=== PATIENT | male | born 1970 | race Caucasian/White ===

== ENCOUNTER 2023-10-29 16:55 | Inpatient (IN) | payer OTHER ==
[~2023-10-29] VITALS: Ht 190.5 cm; Wt 118.0 kg
[2023-10-29] MEDS ORDERED: DEXTROSE 50%-WATER 25 GM/50 ML SYRINGE IVP PRN (17:45)
[2023-10-29 17:57] VITALS: BP 129/67; PULSE 85; RESP 18; TEMP 98.7
[2023-10-29 18:41] LABS: GLUCOMETER DEV NAME(LOC) 6N.2B; GLUCOSE,POINT OF CARE 106 MG/DL (70-110)
[2023-10-29 19:41] VITALS: BP 133/82; PULSE 87; RESP 20; TEMP 101.3
[2023-10-29] MEDS ORDERED: SODIUM CHLORIDE 0.9% 500 ML IV ONE (19:59)
[2023-10-29 20:15] VITALS: TEMP 98.7
[2023-10-29] MEDS ORDERED: MAGNESIUM HYDROXIDE SUSPENSION 30 ML UDCUP PO PRN (20:15)
[2023-10-29] MEDS ORDERED: ONDANSETRON HCL 4 MG/2 ML VIAL IVP PRN (20:15)
[2023-10-29] MEDS ORDERED: ACETAMINOPHEN 325 MG TABLET PO PRN (20:15)
[2023-10-29] MEDS ORDERED: BISACODYL 10 MG RECTAL RECTAL SUPPOSITORY PR PRN (20:15)
[2023-10-29] MEDS ORDERED: SODIUM CHLORIDE 0.9% 3,300 ML IV ONE (20:15)
[2023-10-29] MEDS ORDERED: MORPHINE SULFATE 2 MG/ML SYRINGE IVP PRN (20:15)
[2023-10-29] MEDS: VANCOMYCIN HCL 1.5 GM in DEXTROSE 5%-WATER 250 ML IV SCH (20:42)
[2023-10-29] MEDS: EMPAGLIFLOZIN 10 MG TABLET PO SCH (20:42)
[2023-10-29] MEDS: ACETAMINOPHEN 325 MG TABLET PO PRN (20:51)
[2023-10-29] MEDS: INSULIN GLARGINE,HUM.REC.ANLOG 100 UNITS/ML SQ SCH (20:57)
[2023-10-29] MEDS: DOCUSATE SODIUM 100 MG CAPSULE PO SCH (21:00)
[2023-10-29] MEDS: PIPERACILLIN/TAZO 3.375 GM/D5W 50 ML IV SCH (22:47)
[2023-10-29] MEDS: HEPARIN SODIUM,PORCINE 5,000 UNITS/ML VIAL SQ SCH (23:08)
[2023-10-30 04:16] VITALS: BP 117/65; PULSE 91; RESP 20; TEMP 98.4
[2023-10-30] MEDS: PIPERACILLIN/TAZO 3.375 GM/D5W 50 ML IV SCH ×4 (04:24→22:03)
[2023-10-30 06:31] LABS: GLUCOMETER DEV NAME(LOC) 6S.2; GLUCOSE,POINT OF CARE 131 MG/DL (70-110)
[2023-10-30 06:31] LABS: GLUCOMETER DEV NAME(LOC) 6S.2; GLUCOSE,POINT OF CARE 76 MG/DL (70-110)
[2023-10-30 08:01] VITALS: BP 122/68; PULSE 88; RESP 20; TEMP 98.6
[2023-10-30] MEDS: EMPAGLIFLOZIN 10 MG TABLET PO SCH (08:25)
[2023-10-30] MEDS: HEPARIN SODIUM,PORCINE 5,000 UNITS/ML VIAL SQ SCH ×2 (08:25→16:20)
[2023-10-30] MEDS: VANCOMYCIN HCL 1.5 GM in DEXTROSE 5%-WATER 250 ML IV SCH (08:25)
[2023-10-30] MEDS: DOCUSATE SODIUM 100 MG CAPSULE PO SCH ×3 (08:25→21:00)
[2023-10-30] MEDS: PANTOPRAZOLE SODIUM 40 MG DR TABLET PO SCH (08:25)
[2023-10-30 08:31] LABS: BASOPHILS % (AUTO) 0.2 % (0.0-2.0); EOSINOPHILS % (AUTO) 0.3 % (1.0-6.0); HEMATOCRIT 38.4 % (41-53); HEMOGLOBIN 13.6 g/dL (13.5-17.5); LYMPHOCYTES # (AUTO) 1.3 K/uL (1.0-4.8); LYMPHOCYTES % (AUTO) 11.3 % (22.0-44.0); MEAN CORPUSCULAR HEMOGLOBIN 30.2 pg (26.0-34.0); MEAN CORPUSCULAR HGB CONC 35.3 G/dL (31.0-37.0); MEAN CORPUSCULAR VOLUME 85 fL (80-100); MONOCYTES % (AUTO) 8.8 % (2.0-9.0); NEUTROPHILS # (AUTO) 8.9 K/uL (1.8-7.7); NEUTROPHILS % (AUTO) 79.4 % (40.0-70.0); PLATELET COUNT (AUTO) 353 K/uL (150-450); WHITE BLOOD COUNT (AUTO) 11.2 K/uL (4.5-11.0)
[2023-10-30 08:44] LABS: ANION GAP 13 mmol/L (8-16); CALCIUM, TOTAL 9.6 mg/dL (8.8-10.5); CARBON DIOXIDE 26 mmol/L (22-29); CHLORIDE 101 mmol/L (98-107); CREATININE 0.63 mg/dL (0.60-1.30); GLOMERULAR FILTR. RATE CALC > 60 mL/min (>60); GLUCOSE,RANDOM 70 mg/dL (70-110); POTASSIUM 4.5 mmol/L (3.5-5.1); SODIUM SERUM 140 mmol/L (136-145); UREA NITROGEN, BLOOD 7 mg/dL (7-18)
[2023-10-30] MEDS ORDERED: INSULIN LISPRO 100 UNITS/ML SQ PRN (11:30)
[2023-10-30] MEDS ORDERED: DEXTROSE 50%-WATER 25 GM/50 ML SYRINGE IVP PRN (11:30)
[2023-10-30 14:36] LABS: GLUCOMETER DEV NAME(LOC) 6S.2; GLUCOSE,POINT OF CARE 114 MG/DL (70-110)
[2023-10-30] MEDS: VANCOMYCIN 1GM/WATER(PEG/NADA) 200 ML IV SCH (17:31)
[2023-10-30 20:01] VITALS: BP 116/58; PULSE 88; RESP 18; TEMP 100.2
[2023-10-30] MEDS: INSULIN LISPRO 100 UNITS/ML SQ PRN (20:19)
[2023-10-30] MEDS: INSULIN GLARGINE,HUM.REC.ANLOG 100 UNITS/ML SQ SCH (20:21)
[2023-10-30] MEDS: ACETAMINOPHEN 325 MG TABLET PO PRN (20:22)
[2023-10-30] MEDS: HYDROCODONE/ACETAMINOPHEN 5-325 MG TABLET PO PRN (20:22)
[2023-10-31] MEDS: HEPARIN SODIUM,PORCINE 5,000 UNITS/ML VIAL SQ SCH ×4 (00:28→23:46)
[2023-10-31] MEDS: VANCOMYCIN 1GM/WATER(PEG/NADA) 200 ML IV SCH ×4 (00:28→23:45)
[2023-10-31] MEDS: PIPERACILLIN/TAZO 3.375 GM/D5W 50 ML IV SCH ×4 (03:45→21:53)
[2023-10-31 03:59] VITALS: BP 100/65; PULSE 73; RESP 18; TEMP 98
[2023-10-31 07:18] LABS: BASOPHILS % (AUTO) 0.3 % (0.0-2.0); EOSINOPHILS % (AUTO) 0.6 % (1.0-6.0); HEMATOCRIT 37.6 % (41-53); HEMOGLOBIN 13.6 g/dL (13.5-17.5); LYMPHOCYTES # (AUTO) 1.9 K/uL (1.0-4.8); LYMPHOCYTES % (AUTO) 19.3 % (22.0-44.0); MEAN CORPUSCULAR HEMOGLOBIN 30.8 pg (26.0-34.0); MEAN CORPUSCULAR HGB CONC 36.1 G/dL (31.0-37.0); MEAN CORPUSCULAR VOLUME 85 fL (80-100); MONOCYTES % (AUTO) 9.8 % (2.0-9.0); NEUTROPHILS # (AUTO) 6.9 K/uL (1.8-7.7); PLATELET COUNT (AUTO) 362 K/uL (150-450); RED CELL DISTRIBUTION WIDTH 12.7 % (11.5-14.5); WHITE BLOOD COUNT (AUTO) 9.8 K/uL (4.5-11.0)
[2023-10-31 07:40] LABS: ANION GAP 8 mmol/L (8-16); CALCIUM, TOTAL 9.2 mg/dL (8.8-10.5); CARBON DIOXIDE 29 mmol/L (22-29); CHLORIDE 103 mmol/L (98-107); CREATININE 0.69 mg/dL (0.60-1.30); GLOMERULAR FILTR. RATE CALC > 60 mL/min (>60); GLUCOSE,RANDOM 113 mg/dL (70-110); POTASSIUM 4.3 mmol/L (3.5-5.1); SODIUM SERUM 140 mmol/L (136-145); UREA NITROGEN, BLOOD 10 mg/dL (7-18); VANCOMYCIN,RANDOM 16.2 mcg/mL (25.0-50.0)
[2023-10-31 07:40] LABS: GLUCOMETER DEV NAME(LOC) 6N.2B; GLUCOSE,POINT OF CARE 123 MG/DL (70-110)
[2023-10-31 07:41] LABS: GLUCOMETER DEV NAME(LOC) 6S.2; GLUCOSE,POINT OF CARE 106 MG/DL (70-110)
[2023-10-31 07:41] LABS: GLUCOMETER DEV NAME(LOC) 6S.2; GLUCOSE,POINT OF CARE 204 MG/DL (70-110)
[2023-10-31] MEDS: DOCUSATE SODIUM 100 MG CAPSULE PO SCH ×3 (07:52→20:41)
[2023-10-31] MEDS: PANTOPRAZOLE SODIUM 40 MG DR TABLET PO SCH (07:53)
[2023-10-31] MEDS: EMPAGLIFLOZIN 10 MG TABLET PO SCH (07:53)
[2023-10-31 08:42] VITALS: BP 118/76; PULSE 83; RESP 19; TEMP 98.1
[2023-10-31] MEDS: INSULIN LISPRO 100 UNITS/ML SQ PRN ×2 (11:33→20:40)
[2023-10-31 12:01] LABS: GLUCOMETER DEV NAME(LOC) 6N.2B; GLUCOSE,POINT OF CARE 170 MG/DL (70-110)
[2023-10-31 16:40] VITALS: BP 112/66; PULSE 78; RESP 19; TEMP 98.2
[2023-10-31 20:11] VITALS: BP 109/64; PULSE 82; RESP 18; TEMP 97.9
[2023-10-31] MEDS: INSULIN GLARGINE,HUM.REC.ANLOG 100 UNITS/ML SQ SCH (20:40)
[2023-10-31] MEDS ORDERED: SODIUM CHLORIDE 0.9% 500 ML IV ONE (23:48)
[2023-11-01] MEDS: HYDROCODONE/ACETAMINOPHEN 5-325 MG TABLET PO PRN (01:01)
[2023-11-01] MEDS: PIPERACILLIN/TAZO 3.375 GM/D5W 50 ML IV SCH ×2 (04:00→09:53)
[2023-11-01 04:24] VITALS: BP 114/71; PULSE 74; RESP 18; TEMP 97.8
[2023-11-01] MEDS: INSULIN LISPRO 100 UNITS/ML SQ PRN ×2 (05:27→12:21)
[2023-11-01 06:26] LABS: GLUCOMETER DEV NAME(LOC) 6N.2B; GLUCOSE,POINT OF CARE 193 MG/DL (70-110)
[2023-11-01 06:59] LABS: BASOPHILS % (AUTO) 0.2 % (0.0-2.0); HEMATOCRIT 35.9 % (41-53); HEMOGLOBIN 12.9 g/dL (13.5-17.5); LYMPHOCYTES # (AUTO) 1.7 K/uL (1.0-4.8); LYMPHOCYTES % (AUTO) 18.9 % (22.0-44.0); MEAN CORPUSCULAR HEMOGLOBIN 30.7 pg (26.0-34.0); MEAN CORPUSCULAR VOLUME 85 fL (80-100); MONOCYTES # (AUTO) 0.8 K/uL (0.1-1.0); MONOCYTES % (AUTO) 8.8 % (2.0-9.0); NEUTROPHILS # (AUTO) 6.5 K/uL (1.8-7.7); NEUTROPHILS % (AUTO) 71.1 % (40.0-70.0); PLATELET COUNT (AUTO) 344 K/uL (150-450); RED BLOOD CELL COUNT(AUTO) 4.22 MIL/uL (4.50-5.90); RED CELL DISTRIBUTION WIDTH 12.7 % (11.5-14.5); WHITE BLOOD COUNT (AUTO) 9.1 K/uL (4.5-11.0)
[2023-11-01 07:16] LABS: GLUCOMETER DEV NAME(LOC) 6S.2; GLUCOSE,POINT OF CARE 96 MG/DL (70-110)
[2023-11-01 07:16] LABS: GLUCOMETER DEV NAME(LOC) 4E.2; GLUCOSE,POINT OF CARE 159 MG/DL (70-110)
[2023-11-01 07:52] LABS: ANION GAP 9 mmol/L (8-16); CALCIUM, TOTAL 8.3 mg/dL (8.8-10.5); CARBON DIOXIDE 25 mmol/L (22-29); CHLORIDE 104 mmol/L (98-107); CREATININE 0.73 mg/dL (0.60-1.30); GLOMERULAR FILTR. RATE CALC > 60 mL/min (>60); GLUCOSE,RANDOM 128 mg/dL (70-110); POTASSIUM 3.9 mmol/L (3.5-5.1); SODIUM SERUM 138 mmol/L (136-145); UREA NITROGEN, BLOOD 10 mg/dL (7-18)
[2023-11-01 08:13] VITALS: BP 122/70; PULSE 73; RESP 18; TEMP 98.4
[2023-11-01] MEDS: EMPAGLIFLOZIN 10 MG TABLET PO SCH (08:39)
[2023-11-01] MEDS: PANTOPRAZOLE SODIUM 40 MG DR TABLET PO SCH (08:39)
[2023-11-01] MEDS: VANCOMYCIN 1GM/WATER(PEG/NADA) 200 ML IV SCH (08:39)
[2023-11-01] MEDS: DOCUSATE SODIUM 100 MG CAPSULE PO SCH ×2 (08:39→20:16)
[2023-11-01] MEDS: HEPARIN SODIUM,PORCINE 5,000 UNITS/ML VIAL SQ SCH ×3 (08:39→23:05)
[2023-11-01 12:51] LABS: GLUCOMETER DEV NAME(LOC) 6S.2; GLUCOSE,POINT OF CARE 213 MG/DL (70-110)
[2023-11-01 17:12] VITALS: BP 110/57; PULSE 86; RESP 16; TEMP 98.1
[2023-11-01] MEDS: CLINDAMYCIN 900 MG/D5% WATER 50 ML IV SCH (17:29)
[2023-11-01 17:56] LABS: GLUCOMETER DEV NAME(LOC) 6S.2; GLUCOSE,POINT OF CARE 135 MG/DL (70-110)
[2023-11-01] MEDS: CefTRIAXone SODIUM 2 GM in DEXTROSE 5%-WATER 50 ML IV SCH (18:15)
[2023-11-01] MEDS: INSULIN GLARGINE,HUM.REC.ANLOG 100 UNITS/ML SQ SCH (20:16)
[2023-11-01 21:51] LABS: GLUCOMETER DEV NAME(LOC) 6S.2; GLUCOSE,POINT OF CARE 122 MG/DL (70-110)
[2023-11-02] MEDS: CLINDAMYCIN 900 MG/D5% WATER 50 ML IV SCH ×3 (00:08→16:54)
[2023-11-02 04:50] VITALS: BP 105/61; PULSE 75; RESP 20; TEMP 98
[2023-11-02] MEDS: INSULIN LISPRO 100 UNITS/ML SQ PRN ×2 (06:36→20:45)
[2023-11-02] MEDS ORDERED: RINGERS SOLUTION,LACTATED 1,000 ML IV ONE (06:37)
[2023-11-02] MEDS ORDERED: ETHYL ALCOHOL 62% ANTISEPTIC NASAL SANITIZER 0.6 ML AMPUL NASAL ONE (06:45)
[2023-11-02] MEDS ORDERED: CHLORHEXIDINE GLUCONATE 2% TOWELETTE [2'S/6'S] TP ONE (06:45)
[2023-11-02] MEDS ORDERED: LIDOCAINE/PF 1% 30 ML VIAL ONE (06:55)
[2023-11-02] MEDS ORDERED: BUPIVACAINE HCL/PF 0.5% 30 ML VIAL ONE (06:55)
[2023-11-02] MEDS ORDERED: SODIUM CL IRRIG SOLN BAG 3,000 ML IRRIG ONE (06:56)
[2023-11-02 07:21] LABS: GLUCOMETER DEV NAME(LOC) 6S.2; GLUCOSE,POINT OF CARE 163 MG/DL (70-110)
[2023-11-02] MEDS ORDERED: VANCOMYCIN HCL 1 GM/VIAL ONE (08:12)
[2023-11-02] MEDS ORDERED: GELATIN SPONGE,ABSORBABLE 100 MM TP ONE (08:12)
[2023-11-02] MEDS: PANTOPRAZOLE SODIUM 40 MG DR TABLET PO SCH (09:08)
[2023-11-02] MEDS: HEPARIN SODIUM,PORCINE 5,000 UNITS/ML VIAL SQ SCH ×2 (09:08→16:11)
[2023-11-02] MEDS: EMPAGLIFLOZIN 10 MG TABLET PO SCH (09:08)
[2023-11-02] MEDS: DOCUSATE SODIUM 100 MG CAPSULE PO SCH ×2 (09:08→20:50)
[2023-11-02 11:46] LABS: GLUCOMETER DEV NAME(LOC) 6N.2B; GLUCOSE,POINT OF CARE 113 MG/DL (70-110)
[2023-11-02] MEDS: HYDROCODONE/ACETAMINOPHEN 5-325 MG TABLET PO PRN (13:14)
[2023-11-02 15:00] VITALS: BP 111/71; PULSE 78; RESP 18; TEMP 98.3
[2023-11-02] MEDS ORDERED: SODIUM CHLORIDE 0.9% 500 ML IV ONE (17:02)
[2023-11-02 17:21] LABS: GLUCOMETER DEV NAME(LOC) 6N.2B; GLUCOSE,POINT OF CARE 105 MG/DL (70-110)
[2023-11-02] MEDS: CefTRIAXone SODIUM 2 GM in DEXTROSE 5%-WATER 50 ML IV SCH (17:53)
[2023-11-02 20:00] VITALS: BP 114/64; PULSE 76; RESP 18; TEMP 98.9
[2023-11-02] MEDS: INSULIN GLARGINE,HUM.REC.ANLOG 100 UNITS/ML SQ SCH (20:45)
[2023-11-02 22:36] LABS: GLUCOMETER DEV NAME(LOC) 6S.2; GLUCOSE,POINT OF CARE 163 MG/DL (70-110)
[2023-11-03] MEDS: HEPARIN SODIUM,PORCINE 5,000 UNITS/ML VIAL SQ SCH ×3 (00:15→17:05)
[2023-11-03] MEDS: CLINDAMYCIN 900 MG/D5% WATER 50 ML IV SCH ×3 (00:16→17:05)
[2023-11-03 04:26] VITALS: BP 107/67; PULSE 74; RESP 20; TEMP 97.9
[2023-11-03] MEDS ORDERED: MIDAZOLAM HCL 2 MG/2 ML VIAL IVP ONE (05:44)
[2023-11-03] MEDS ORDERED: PROPOFOL 1% 20 ML VIAL IVP ONE (05:44)
[2023-11-03] MEDS ORDERED: ONDANSETRON HCL 4 MG/2 ML VIAL IVP ONE (05:44)
[2023-11-03] MEDS ORDERED: FentaNYL CITRATE PF 100 MCG/2 ML VIAL IVP ONE (05:44)
[2023-11-03] MEDS: INSULIN LISPRO 100 UNITS/ML SQ PRN ×3 (06:04→21:15)
[2023-11-03 07:10] LABS: GLUCOMETER DEV NAME(LOC) 4E.2; GLUCOSE,POINT OF CARE 164 MG/DL (70-110)
[2023-11-03 07:24] LABS: BASOPHILS % (AUTO) 0.4 % (0.0-2.0); EOSINOPHILS % (AUTO) 1.1 % (1.0-6.0); HEMATOCRIT 38.3 % (41-53); HEMOGLOBIN 13.5 g/dL (13.5-17.5); LYMPHOCYTES # (AUTO) 2.1 K/uL (1.0-4.8); MEAN CORPUSCULAR HEMOGLOBIN 29.8 pg (26.0-34.0); MEAN CORPUSCULAR HGB CONC 35.1 G/dL (31.0-37.0); MEAN CORPUSCULAR VOLUME 85 fL (80-100); MONOCYTES # (AUTO) 0.6 K/uL (0.1-1.0); MONOCYTES % (AUTO) 6.6 % (2.0-9.0); NEUTROPHILS # (AUTO) 6.3 K/uL (1.8-7.7); PLATELET COUNT (AUTO) 405 K/uL (150-450); RED BLOOD CELL COUNT(AUTO) 4.51 MIL/uL (4.50-5.90); RED CELL DISTRIBUTION WIDTH 12.7 % (11.5-14.5); WHITE BLOOD COUNT (AUTO) 9.1 K/uL (4.5-11.0)
[2023-11-03 07:31] LABS: NEUTROPHILS % (AUTO) 68.9 % (40.0-70.0)
[2023-11-03 07:33] VITALS: BP 114/70; PULSE 91; RESP 20; TEMP 98.1
[2023-11-03 07:40] LABS: ANION GAP 9 mmol/L (8-16); CALCIUM, TOTAL 8.7 mg/dL (8.8-10.5); CARBON DIOXIDE 26 mmol/L (22-29); CHLORIDE 104 mmol/L (98-107); CREATININE 0.64 mg/dL (0.60-1.30); GLOMERULAR FILTR. RATE CALC > 60 mL/min (>60); GLUCOSE,RANDOM 156 mg/dL (70-110); POTASSIUM 4.3 mmol/L (3.5-5.1); SODIUM SERUM 139 mmol/L (136-145); UREA NITROGEN, BLOOD 11 mg/dL (7-18)
[2023-11-03] MEDS: MULTIVITAMINS WITH MINERALS, THERAPEUTIC TABLET PO SCH (08:40)
[2023-11-03] MEDS: ASCORBIC ACID 500 MG TABLET PO SCH (08:40)
[2023-11-03] MEDS: PANTOPRAZOLE SODIUM 40 MG DR TABLET PO SCH (08:40)
[2023-11-03] MEDS: DOCUSATE SODIUM 100 MG CAPSULE PO SCH ×2 (08:40→21:12)
[2023-11-03] MEDS: EMPAGLIFLOZIN 10 MG TABLET PO SCH (08:40)
[2023-11-03 12:51] LABS: GLUCOMETER DEV NAME(LOC) 6S.2; GLUCOSE,POINT OF CARE 184 MG/DL (70-110)
[2023-11-03 15:02] VITALS: BP 113/80; PULSE 76; RESP 16; TEMP 98.5
[2023-11-03 18:11] LABS: GLUCOMETER DEV NAME(LOC) 4E.2; GLUCOSE,POINT OF CARE 134 MG/DL (70-110)
[2023-11-03] MEDS: CefTRIAXone SODIUM 2 GM in DEXTROSE 5%-WATER 50 ML IV SCH (18:50)
[2023-11-03 20:00] VITALS: BP 116/75; PULSE 84; RESP 18; TEMP 98.4
[2023-11-03] MEDS: INSULIN GLARGINE,HUM.REC.ANLOG 100 UNITS/ML SQ SCH (21:13)
[2023-11-03] MEDS: HYDROCODONE/ACETAMINOPHEN 5-325 MG TABLET PO PRN (21:15)
[2023-11-03 22:21] LABS: GLUCOMETER DEV NAME(LOC) 4E.2; GLUCOSE,POINT OF CARE 221 MG/DL (70-110)
[2023-11-04] MEDS: HEPARIN SODIUM,PORCINE 5,000 UNITS/ML VIAL SQ SCH ×4 (00:47→23:48)
[2023-11-04] MEDS: CLINDAMYCIN 900 MG/D5% WATER 50 ML IV SCH ×2 (00:48→09:03)
[2023-11-04 04:03] VITALS: BP 119/64; PULSE 70; RESP 18; TEMP 98.1
[2023-11-04] MEDS: INSULIN LISPRO 100 UNITS/ML SQ PRN ×4 (06:13→21:14)
[2023-11-04 06:55] LABS: BASOPHILS % (AUTO) 0.2 % (0.0-2.0); EOSINOPHILS % (AUTO) 1.3 % (1.0-6.0); HEMATOCRIT 37.9 % (41-53); HEMOGLOBIN 13.7 g/dL (13.5-17.5); LYMPHOCYTES # (AUTO) 1.8 K/uL (1.0-4.8); LYMPHOCYTES % (AUTO) 25.2 % (22.0-44.0); MEAN CORPUSCULAR HEMOGLOBIN 30.6 pg (26.0-34.0); MEAN CORPUSCULAR HGB CONC 36.1 G/dL (31.0-37.0); MEAN CORPUSCULAR VOLUME 85 fL (80-100); MONOCYTES # (AUTO) 0.6 K/uL (0.1-1.0); NEUTROPHILS # (AUTO) 4.7 K/uL (1.8-7.7); NEUTROPHILS % (AUTO) 65.3 % (40.0-70.0); PLATELET COUNT (AUTO) 398 K/uL (150-450); RED BLOOD CELL COUNT(AUTO) 4.48 MIL/uL (4.50-5.90); RED CELL DISTRIBUTION WIDTH 12.9 % (11.5-14.5); WHITE BLOOD COUNT (AUTO) 7.1 K/uL (4.5-11.0)
[2023-11-04 07:06] LABS: GLUCOMETER DEV NAME(LOC) 6S.2; GLUCOSE,POINT OF CARE 220 MG/DL (70-110)
[2023-11-04 07:07] LABS: ANION GAP 8 mmol/L (8-16); CALCIUM, TOTAL 8.7 mg/dL (8.8-10.5); CARBON DIOXIDE 25 mmol/L (22-29); CHLORIDE 105 mmol/L (98-107); CREATININE 0.55 mg/dL (0.60-1.30); GLOMERULAR FILTR. RATE CALC > 60 mL/min (>60); GLUCOSE,RANDOM 220 mg/dL (70-110); POTASSIUM 4.1 mmol/L (3.5-5.1); SODIUM SERUM 138 mmol/L (136-145); UREA NITROGEN, BLOOD 11 mg/dL (7-18)
[2023-11-04 08:24] VITALS: BP 115/78; PULSE 91; RESP 18; TEMP 98.1
[2023-11-04] MEDS: DOCUSATE SODIUM 100 MG CAPSULE PO SCH ×2 (09:03→21:15)
[2023-11-04] MEDS: MULTIVITAMINS WITH MINERALS, THERAPEUTIC TABLET PO SCH (09:03)
[2023-11-04] MEDS: EMPAGLIFLOZIN 10 MG TABLET PO SCH (09:03)
[2023-11-04] MEDS: PANTOPRAZOLE SODIUM 40 MG DR TABLET PO SCH (09:03)
[2023-11-04] MEDS: ASCORBIC ACID 500 MG TABLET PO SCH (09:04)
[2023-11-04] MEDS: ACETAMINOPHEN 325 MG TABLET PO PRN (09:08)
[2023-11-04 17:06] VITALS: BP 103/65; PULSE 78; RESP 18; TEMP 97.9
[2023-11-04] MEDS: CefTRIAXone SODIUM 2 GM in DEXTROSE 5%-WATER 50 ML IV SCH (17:44)
[2023-11-04 18:06] LABS: GLUCOMETER DEV NAME(LOC) 4E.2; GLUCOSE,POINT OF CARE 177 MG/DL (70-110)
[2023-11-04 18:07] LABS: GLUCOMETER DEV NAME(LOC) 4E.2; GLUCOSE,POINT OF CARE 165 MG/DL (70-110)
[2023-11-04] MEDS: INSULIN GLARGINE,HUM.REC.ANLOG 100 UNITS/ML SQ SCH (21:13)
[2023-11-04] MEDS: HYDROCODONE/ACETAMINOPHEN 5-325 MG TABLET PO PRN (21:15)
[2023-11-04 21:40] VITALS: BP 109/68; PULSE 90; RESP 18; TEMP 98.1
[2023-11-04 23:05] LABS: GLUCOMETER DEV NAME(LOC) 6N.2B; GLUCOSE,POINT OF CARE 193 MG/DL (70-110)
[2023-11-05 05:45] VITALS: BP 107/72; PULSE 68; RESP 18; TEMP 98.5
[2023-11-05] MEDS: INSULIN LISPRO 100 UNITS/ML SQ PRN ×5 (06:24→20:20)
[2023-11-05 06:46] LABS: GLUCOMETER DEV NAME(LOC) 6N.2B; GLUCOSE,POINT OF CARE 211 MG/DL (70-110)
[2023-11-05 06:54] LABS: ANION GAP 8 mmol/L (8-16); CALCIUM, TOTAL 8.8 mg/dL (8.8-10.5); CARBON DIOXIDE 28 mmol/L (22-29); CHLORIDE 103 mmol/L (98-107); CREATININE 0.59 mg/dL (0.60-1.30); GLOMERULAR FILTR. RATE CALC > 60 mL/min (>60); GLUCOSE,RANDOM 208 mg/dL (70-110); POTASSIUM 4.4 mmol/L (3.5-5.1); SODIUM SERUM 138 mmol/L (136-145); UREA NITROGEN, BLOOD 14 mg/dL (7-18)
[2023-11-05 07:01] LABS: BASOPHILS % (AUTO) 0.2 % (0.0-2.0); EOSINOPHILS % (AUTO) 1.3 % (1.0-6.0); HEMOGLOBIN 14.4 g/dL (13.5-17.5); LYMPHOCYTES # (AUTO) 2.3 K/uL (1.0-4.8); LYMPHOCYTES % (AUTO) 29.7 % (22.0-44.0); MEAN CORPUSCULAR HEMOGLOBIN 30.6 pg (26.0-34.0); MEAN CORPUSCULAR HGB CONC 36.1 G/dL (31.0-37.0); MEAN CORPUSCULAR VOLUME 85 fL (80-100); MONOCYTES # (AUTO) 0.5 K/uL (0.1-1.0); MONOCYTES % (AUTO) 6.6 % (2.0-9.0); NEUTROPHILS # (AUTO) 4.8 K/uL (1.8-7.7); NEUTROPHILS % (AUTO) 62.2 % (40.0-70.0); PLATELET COUNT (AUTO) 432 K/uL (150-450); RED BLOOD CELL COUNT(AUTO) 4.73 MIL/uL (4.50-5.90); RED CELL DISTRIBUTION WIDTH 12.8 % (11.5-14.5); WHITE BLOOD COUNT (AUTO) 7.8 K/uL (4.5-11.0)
[2023-11-05] MEDS: PANTOPRAZOLE SODIUM 40 MG DR TABLET PO SCH (08:42)
[2023-11-05] MEDS: EMPAGLIFLOZIN 10 MG TABLET PO SCH (08:42)
[2023-11-05] MEDS: DOCUSATE SODIUM 100 MG CAPSULE PO SCH ×2 (08:42→20:12)
[2023-11-05] MEDS: ASCORBIC ACID 500 MG TABLET PO SCH (08:42)
[2023-11-05] MEDS: MULTIVITAMINS WITH MINERALS, THERAPEUTIC TABLET PO SCH (08:42)
[2023-11-05] MEDS: HEPARIN SODIUM,PORCINE 5,000 UNITS/ML VIAL SQ SCH ×3 (08:42→23:09)
[2023-11-05 09:05] VITALS: BP 110/59; PULSE 83; RESP 18; TEMP 98
[2023-11-05 14:16] LABS: GLUCOMETER DEV NAME(LOC) 6N.2B; GLUCOSE,POINT OF CARE 162 MG/DL (70-110)
[2023-11-05] MEDS: ACETAMINOPHEN 325 MG TABLET PO PRN (15:58)
[2023-11-05 17:01] LABS: C-REACTIVE PROTEIN QUANT 2.19 mg/dL (0.00-0.30)
[2023-11-05] MEDS: CefTRIAXone SODIUM 2 GM in DEXTROSE 5%-WATER 50 ML IV SCH (17:14)
[2023-11-05 17:20] VITALS: BP 119/71; PULSE 85; RESP 18; TEMP 97.9
[2023-11-05 18:16] LABS: GLUCOMETER DEV NAME(LOC) 6S.2; GLUCOSE,POINT OF CARE 147 MG/DL (70-110)
[2023-11-05] MEDS: INSULIN GLARGINE,HUM.REC.ANLOG 100 UNITS/ML SQ SCH (20:21)
[2023-11-05 20:28] VITALS: BP 136/79; PULSE 97; RESP 18; TEMP 98
[2023-11-06 04:30] VITALS: BP 111/75; PULSE 77; RESP 18; TEMP 98
[2023-11-06] MEDS: INSULIN LISPRO 100 UNITS/ML SQ PRN ×3 (05:39→21:23)
[2023-11-06 06:21] LABS: GLUCOMETER DEV NAME(LOC) 6S.2; GLUCOSE,POINT OF CARE 208 MG/DL (70-110)
[2023-11-06 07:41] LABS: GLUCOMETER DEV NAME(LOC) 6N.2B; GLUCOSE,POINT OF CARE 257 MG/DL (70-110)
[2023-11-06] MEDS: ASCORBIC ACID 500 MG TABLET PO SCH (08:47)
[2023-11-06] MEDS: HEPARIN SODIUM,PORCINE 5,000 UNITS/ML VIAL SQ SCH ×3 (08:47→23:30)
[2023-11-06] MEDS: DOCUSATE SODIUM 100 MG CAPSULE PO SCH ×2 (08:47→21:00)
[2023-11-06] MEDS: EMPAGLIFLOZIN 10 MG TABLET PO SCH (08:48)
[2023-11-06] MEDS: HYDROCODONE/ACETAMINOPHEN 5-325 MG TABLET PO PRN (08:48)
[2023-11-06] MEDS: PANTOPRAZOLE SODIUM 40 MG DR TABLET PO SCH (08:48)
[2023-11-06] MEDS: MULTIVITAMINS WITH MINERALS, THERAPEUTIC TABLET PO SCH (08:48)
[2023-11-06 10:29] VITALS: BP 112/75; PULSE 80; RESP 18; TEMP 97.5
[2023-11-06] MEDS: CefTRIAXone SODIUM 2 GM in DEXTROSE 5%-WATER 50 ML IV SCH (17:09)
[2023-11-06 17:23] VITALS: BP 103/70; PULSE 74; RESP 20; TEMP 98.2
[2023-11-06 18:56] LABS: GLUCOMETER DEV NAME(LOC) 6S.2; GLUCOSE,POINT OF CARE 121 MG/DL (70-110)
[2023-11-06 19:42] VITALS: BP 98/61; PULSE 89; RESP 20; TEMP 98.4
[2023-11-06] MEDS: INSULIN GLARGINE,HUM.REC.ANLOG 100 UNITS/ML SQ SCH (21:22)
[2023-11-07 04:09] VITALS: BP 107/66; PULSE 89; RESP 20; TEMP 97.7
[2023-11-07] MEDS: INSULIN LISPRO 100 UNITS/ML SQ PRN ×4 (06:35→20:53)
[2023-11-07] MEDS: PANTOPRAZOLE SODIUM 40 MG DR TABLET PO SCH (08:35)
[2023-11-07] MEDS: HEPARIN SODIUM,PORCINE 5,000 UNITS/ML VIAL SQ SCH ×2 (08:35→16:29)
[2023-11-07] MEDS: DOCUSATE SODIUM 100 MG CAPSULE PO SCH ×2 (08:35→20:23)
[2023-11-07] MEDS: EMPAGLIFLOZIN 10 MG TABLET PO SCH (08:35)
[2023-11-07] MEDS: MULTIVITAMINS WITH MINERALS, THERAPEUTIC TABLET PO SCH (08:35)
[2023-11-07] MEDS: ASCORBIC ACID 500 MG TABLET PO SCH (08:35)
[2023-11-07 09:31] VITALS: BP 122/77; PULSE 80; RESP 20; TEMP 97.9
[2023-11-07 11:16] LABS: GLUCOMETER DEV NAME(LOC) 6S.2; GLUCOSE,POINT OF CARE 248 MG/DL (70-110)
[2023-11-07 11:16] LABS: GLUCOMETER DEV NAME(LOC) 6S.2; GLUCOSE,POINT OF CARE 224 MG/DL (70-110)
[2023-11-07] MEDS: HYDROCODONE/ACETAMINOPHEN 5-325 MG TABLET PO PRN (11:16)
[2023-11-07 12:46] LABS: GLUCOMETER DEV NAME(LOC) 4E.2; GLUCOSE,POINT OF CARE 181 MG/DL (70-110)
[2023-11-07 15:45] VITALS: BP 117/82; PULSE 79; RESP 20; TEMP 98.2
[2023-11-07] MEDS: CefTRIAXone SODIUM 2 GM in DEXTROSE 5%-WATER 50 ML IV SCH (18:13)
[2023-11-07 19:45] VITALS: BP 124/70; PULSE 90; RESP 20; TEMP 98.1
[2023-11-07] MEDS: ZOLPIDEM TARTRATE 5 MG TABLET PO PRN ×2 (20:24→20:56)
[2023-11-07] MEDS: INSULIN GLARGINE,HUM.REC.ANLOG 100 UNITS/ML SQ SCH (20:55)
[2023-11-07 23:06] LABS: GLUCOMETER DEV NAME(LOC) 4E.2; GLUCOSE,POINT OF CARE 258 MG/DL (70-110)
[2023-11-08] MEDS: HEPARIN SODIUM,PORCINE 5,000 UNITS/ML VIAL SQ SCH ×3 (00:09→16:00)
[2023-11-08] MEDS: HYDROCODONE/ACETAMINOPHEN 5-325 MG TABLET PO PRN (00:10)
[2023-11-08 01:51] LABS: GLUCOMETER DEV NAME(LOC) 6S.2; GLUCOSE,POINT OF CARE 155 MG/DL (70-110)
[2023-11-08 05:45] VITALS: BP 120/84; PULSE 75; RESP 20; TEMP 97.9
[2023-11-08] MEDS: INSULIN LISPRO 100 UNITS/ML SQ PRN (06:21)
[2023-11-08 09:39] VITALS: BP 99/69; PULSE 75; RESP 19; TEMP 98.3
[2023-11-08] MEDS: MULTIVITAMINS WITH MINERALS, THERAPEUTIC TABLET PO SCH (09:57)
[2023-11-08] MEDS: PANTOPRAZOLE SODIUM 40 MG DR TABLET PO SCH (09:57)
[2023-11-08] MEDS: DOCUSATE SODIUM 100 MG CAPSULE PO SCH (09:57)
[2023-11-08] MEDS: ASCORBIC ACID 500 MG TABLET PO SCH (09:58)
[2023-11-08] MEDS: EMPAGLIFLOZIN 10 MG TABLET PO SCH (09:58)
[2023-11-08] MEDS ORDERED: AMOX1TAB16 PO (11:43)
[2023-11-08] MEDS ORDERED: EMPA10TA3 PO (11:43)
[2023-11-08] MEDS ORDERED: [UNRECOGNIZED DRUG - CODE] SQ (11:43)
[2023-11-08] MEDS ORDERED: INSLAN SQ (11:43)
[2023-11-08] MEDS ORDERED: ASCO500 PO (11:43)
[2023-11-08 12:11] LABS: GLUCOMETER DEV NAME(LOC) 6N.2B; GLUCOSE,POINT OF CARE 211 MG/DL (70-110)
[2023-11-08 19:31] LABS: GLUCOMETER DEV NAME(LOC) 6S.2; GLUCOSE,POINT OF CARE 181 MG/DL (70-110)
== END 2023-11-08 16:31 | disposition home or self-care (01) | DRG 240 ==
LOC: 6S 16:55
PROVIDERS: ADMIT Internal Medicine; ATTEND Internal Medicine
PROC: 0Y6N0ZF Detachment at Left Foot, Partial 5th Ray, Open Approach (ICD-10-PCS; principal; 2023-11-03)
DX: E11.52 Type 2 diabetes mellitus with diabetic peripheral angiopathy with gangrene (principal); L02.612 Cutaneous abscess of left foot; L03.116 Cellulitis of left lower limb; M86.8X7 Other osteomyelitis, ankle and foot; E11.69 Type 2 diabetes mellitus with other specified complication; E11.65 Type 2 diabetes mellitus with hyperglycemia
CPT/HCPCS: 80048; 80202; 82962; 85025; 86140; 87070; 87101; 87205; 88305; 88312; 97163; J0696; J1644; J1815; J2250; J2270; J2405; J2543; J2704; J3010; J3370; J3490; J7040; J7060; J7120; Q9967; 36415-L1; 36415-TC; Z7610